=== PATIENT | female | born 1935 | race Two or more races ===

== ENCOUNTER → 2016-10-24 | Outpatient (CLI) | payer MEDICARE, MEDICAID ==
[~2016-10-24] MED LIST: AMIT25TA9 OR; ASPI81CH45 OR; ATOR10TA52 PO; GABA-494 PO; GLIM4TAB42 PO; INSUPOW; METF-370 PO; METO25TA5 PO; VALS40TA2 PO; ZOLP10TA6 PO; [UNRECOGNIZED DRUG - CODE] PO
[2016-10-24 09:25] LABS: Basophils # (auto) 0 uL; Basophils % (auto) 0.6 % (0.0-2.0); Eosinophils # (auto) 0.1 uL; Eosinophils % (auto) 1.9 % (0.0-7.0); Hematocrit 41.8 % (36.0-46.0); Hemoglobin 14.2 g/dL (12.2-16.2); Lymphocytes # (auto) 1.8 uL; Lymphocytes % (auto) 27.6 % (10.0-50.0); Mean Corpuscular Hemoglobin 31.4 pg (28.0-32.0); Mean Corpuscular Volume 92.4 fL (80.0-100.0); Mean Platelet Volume 8.3 fL (7.4-10.4); Monocytes # (auto) 0.4 uL; Neutrophils % (auto) 62.9 % (37.0-80.0); Platelet Count (auto) 281 10^3/uL (140-450); Red Cell Distribution Width 13.5 % (11.6-16.0); White Blood Cell 6.4 10^3/uL (4.4-10.8)
[2016-10-24 10:04] LABS: Albumin 3.7 g/dL (3.4-5.0); BUN/Creatinine Ratio 18.8; Bilirubin, Total 0.9 mg/dL (0.2-1.0); Calcium 8.8 mg/dL (8.5-10.1); Potassium 3.9 mmol/L (3.5-5.1); Total Protein 7.1 g/dL (6.4-8.2)
== END | disposition home or self-care (01) ==
LOC: LAB 09:04
PROVIDERS: ATTEND Internal Medicine
DX: E11.9 Type 2 diabetes mellitus without complications (principal); I10 Essential (primary) hypertension; E03.9 Hypothyroidism, unspecified
CPT/HCPCS: 36415; 80053; 83036; 84439; 84443; 85025